=== PATIENT | female | born 1950 | race Caucasian/White ===

== ENCOUNTER → 2018-01-26 | Outpatient (CLI) | payer MEDICARE, OTHER ==
[~2018-01-26] MED LIST: ALBU8.5H12 IH; ATOR10TA24 PO; ATOR10TA65 PO; BIOT10TA3 PO; CEFU500T10 PO; CHOL500025 PO; FLU60SYR30 IM ONLY; MELO-205 PO; MULT-19 PO; PNEU0.5D3 IM; ZINC30TA5 PO; [UNRECOGNIZED DRUG - OTHER] PO
--- NOTE | 2018-01-26 14:23 | RADIOLOGY IMAGING REPORT ---
FACILITY: [facility] - [place] PATIENT NAME: Brenda Valles : 1950 MR: [id number] V: [id number] EXAM DATE: ORDERING PHYSICIAN: JUNE BANERJEE TECHNOLOGIST: Location: [facility] Patient: Brenda Valles : 1950 Visit/Account:[id number] Date of Sevice: 01/26/2018 DEXA Scan Clinical history: Postmenopausal screening. Comparison: DEXA scan from 04/16/2011. LUMBAR SPINE: The bone mineral density (BMD) measured from L1-L4 correlates with a Z-score of 1.2 and a T-score of 0.6 which is Normal as defined by the World Health Organization. The corresponding risk of fracture in the lumbar spine is Not increased compared with a young adult reference population. This value horn s decrease by eight % since the prior study. More than 5% change is considered significant. HIP: Bone mineral density (BMD) measured in the LEFT total hip region correlates with a Z-score 0.3 and a T-score of 0.3 which is normal as defined by the World Health Organization. The corresponding risk of fracture in the hip is Not i ncreased compared to a young adult reference population. This value has decreased by 7.4 % since the prior study. More than 5% change is considered significant. T score left femoral neck -0.4 Bone mineral density (BMD) measured in the Femoral Neck region measures 0.987 g/cm?. IMPRESSION: 1. Lumbar spine: Normal. There has been 8% decrease in the bone mineral density since the previous exam. 2. Left Total Hip: Normal. There has been 7.4% decrease in the bone mineral density since the previ ous exam. 3. Femoral Neck: Bone Mineral Density is 0.987 g/cm? The next DEXA scan of this patient should include the following sites: L1-L4 and the left hip. FRAX? WHO Fracture Risk Assessment Tool link: <http://www.shef.ac.uk/FRAX/tool.jsp?locationValue=9> PLEASE NOTE: 1) The World Health Organization defines low BMD as follows: T-score Normal > -1 Osteopenia < -1 and > -2.5 Osteoporosis < -2.5 without fractures Established osteoporosis < -2.5 with fractures 2) In general, you may wish to consider: Diagnosis Treatment Follow-up DEXA Normal BMD Prevention 2-3 years Osteopenia Prevention/therapy 1-2 years Osteoporosis Therapy Yearly 3) Fracture risk estimated from the T-score is more accurate for vertebral fractures (often spontane ous) than for hip fractures. Report Dictated By: Anca Flores MD at 01/26/2018 2:19 PM Report E-Signed By: Anca Flores MD at 01/26/2018 2:20 PM LORN:WOODY
--- NOTE | 2018-01-26 14:58 | RADIOLOGY IMAGING REPORT ---
FACILITY: [facility] - [place] PATIENT NAME: Brenda Valles : 1950 MR: [id number] V: [id number] EXAM DATE: ORDERING PHYSICIAN: JUNE BANERJEE TECHNOLOGIST: Location: [facility] - [place] Patient: Brenda Valles : 1950 Visit/Account:[id number] Date of Sevice: 01/26/2018 CHEST W/O CONTRAST History: Follow-up/surveillance pulmonary nodules TECHNIQUE: Contiguous axial images were performed through the chest to the level of the adrenal gla nds. No IV contrast was administered. Coronal and sagittal reformatting was also performed. Dose Lowe ring Technique One of the following dose optimization techniques was utilized in the performance of this exam: Autom ated exposure control; adjustment of the mA and/or kV according to the patient's size; or use of an i terative reconstruction technique. Specific details can be referenced in the facility's radiology C T exam operational policy. COMPARISON STUDIES: January 13, 2016. Lungs / Pleura: Multiple thin-walled air cysts are again seen throughout the lungs appearing simila r to the prior study. Scattered micronodules throughout the lungs also remains stable. Mediastinum/nodes: Several small left-sided thyroid nodules are noted appearing similar to the prior study Heart and vessels: negative. Musculoskeletal / Body wall: There are spondylotic changes of the thoracic spine. There are Old le ft-sided rib fractures again seen Upper abdomen: Subtle hypoattenuating focus within the liver at the junction of segments 4A and eig ht appears less prominent when compared the prior study IMPRESSION: Multiple thin-walled air cysts throughout the lungs and multiple scattered micronodules have remained stable Several small left-sided thyroid nodules are again seen. These could be further evaluated with thyro id ultrasound Subtle hypoattenuating focus within the liver at the junctions of segment 4A and eight@appears less p rominent. This has been previously shown by MR of abdomen on May 18, 2013 to represent a hemangi tung Report Dictated By: Anca Flores MD at 01/26/2018 2:38 PM Report E-Signed By: Anca Flores MD at 01/26/2018 2:53 PM WSN:[email or web address]
--- NOTE | 2018-01-27 10:23 | RADIOLOGY IMAGING REPORT ---
FACILITY: [facility] [place] PATIENT NAME: MARIANO MCCRARY : [id number] MR: [id number] V: [id number] EXAM DATE: [id number] ORDERING PHYSICIAN: JUNE BANERJEE TECHNOLOGIST: Deanne Rios PROCEDURE:BILATERAL DIGITAL SCREENING MAMMOGRAM WITH CAD ASSISTED INTERPRETATION & 3D TOMOSYNTHESIS COMPARISON:Prior mammograms 01/13/16, 11/21/13, 04/16/11. INDICATIONS:screening FINDINGS: A small to moderate amount of fibroglandular tissue is seen throughout the breasts. The parenchymal pattern has remained stable allowing for difference in mammographic technique & patient positioning. There is no evidence of malignant appearing mass, malignant appearing calcifications or other secondary sign of malignancy in either breast. DIAGNOSTIC CATEGORY 1--NEGATIVE. RECOMMENDATIONS: ROUTINE MAMMOGRAM AND CLINICAL EVALUATION. IMPRESSION: BIRADS 1: Negative. No significant abnormality is seen. Dictated by: Anca Flores M.D. on 01/26/2018 at 16:22 Transcribed by: JESSE on 01/27/2018 at 8:54 Approved by: Anca Flores M.D. on 01/27/2018 at 10:22 [facility]
== END ==
LOC: CT 00:50
PROVIDERS: ATTEND Nurse Practitioner Primary Care
DX: Z12.31 Encounter for screening mammogram for malignant neoplasm of breast (principal); R91.8 Other nonspecific abnormal finding of lung field; E04.2 Nontoxic multinodular goiter; M47.894 Other spondylosis, thoracic region
CPT/HCPCS: 71250; 77063; 77067; 77080

== ENCOUNTER → 2018-02-01 | Outpatient (CLI) | payer MEDICARE, OTHER ==
[~2018-02-01] MED LIST changes: +FLU180SY11 IM; +PNEI IM
--- NOTE | 2018-02-01 09:28 | RADIOLOGY IMAGING REPORT ---
FACILITY: [facility] - [place] PATIENT NAME: Brenda Valles : 1950 MR: [id number] V: [id number] EXAM DATE: ORDERING PHYSICIAN: JUNE BANERJEE TECHNOLOGIST: Location: [facility] - [place] Patient: Brenda Valles : 1950 Visit/Account:[id number] Date of Sevice: 02/01/2018 Thyroid ultrasound. HISTORY: Follow-up thyroid nodules visualized on CT scan. COMPARISON: CT scan 11/15/2013, and 01/26/2018. The right thyroid lobe measures 4.6 cm in length. No right thyroid nodules are identified. The thyroid isthmus measures 6 mm in thickness. The left thyroid lobe measures 3.8 cm in length. A 6 mm hypoechoic nodule is present in the midporti on of the left thyroid lobe. A 9 mm hyperechoic nodule is present in the lower pole of left thyroid lobe. The left thyroid nodules are essentially unchanged compared to the previous CT scan on 014. IMPRESSION: Multinodular goiter, essentially unchanged. Report Dictated By: Vickey Anguiano MD at 02/01/2018 9:18 AM Report E-Signed By: Vickey Anguiano MD at 02/01/2018 9:25 AM WSN:[email or web address]
== END ==
LOC: US 06:59
PROVIDERS: ATTEND Nurse Practitioner Primary Care
DX: E04.2 Nontoxic multinodular goiter (principal)
CPT/HCPCS: 76536